=== PATIENT | female | born 2000 | race Caucasian/White ===

== ENCOUNTER 2018-02-07 18:00 | Emergency (ER) | payer OTHER, SELFPAY ==
[2018-02-07 18:03] VITALS: BP 112/89; PULSE 69; RESP 16; TEMP 36.8; O2SAT 99
--- NOTE | 2018-02-07 19:56 | PDOC.MHCN ---
Date of service: 02/07/18 Time of Service: 19:56 Mental Health Crisis Note Presenting Issue How did you arrive at the ED and why did you come: Patient arrived at the Emergency Department via [employer] after being called for a female having a panic attack and pacing back and fourth the highway. Precipitating Factors Patient denies suicidal intent. She states that she was having a conversation with her boyfriend that escalated to an extent where she felt as if she needed to exit the vehicle. She stated that her boyfriend refused to stop the vehicle but when he did she began pacing back and fourth across the lines of traffic. She cannot identify a reason as to why she engaged in such behavior but is able to that it was not her direct intent to kill herself. Disposition BEHAVIOR: No abnormal behavior to report EYE CONTACT: Direct MOOD: Nervous and anxious AFFECT: Appropriate for conversation APPETITE: Patient states that she has not been able to eat due to a sore throat from excessive vomiting due to intoxificaton SLEEP(trouble falling/staying asleep: Good Plan After speaking with the patient and the patient's boyfriend they are safe to return to their travels home to [place]. This underwriter gave the patient the crisis text line as well as the warm line for [place]. She states that she will be safe in the car on the ride home. Signature Clinician's Name/Title: Martina Peña - [facility] Emergency Clinician
--- NOTE | 2018-02-07 20:28 | PDOC.MHCN_ITS ---
Date of service: 02/07/18 Time of Service: 19:56 Mental Health Crisis Note Presenting Issue How did you arrive at the ED and why did you come: Patient arrived at the Emergency Department via [employer] after being called for a female having a panic attack and pacing back and fourth the highway. Precipitating Factors Patient denies suicidal intent. She states that she was having a conversation with her boyfriend that escalated to an extent where she felt as if she needed to exit the vehicle. She stated that her boyfriend refused to stop the vehicle but when he did she began pacing back and fourth across the lines of traffic. She cannot identify a reason as to why she engaged in such behavior but is able to that it was not her direct intent to kill herself. Disposition BEHAVIOR: No abnormal behavior to report EYE CONTACT: Direct MOOD: Nervous and anxious AFFECT: Appropriate for conversation APPETITE: Patient states that she has not been able to eat due to a sore throat from excessive vomiting due to intoxificaton SLEEP(trouble falling/staying asleep: Good Plan After speaking with the patient and the patient's boyfriend they are safe to return to their travels home to [place]. This database report writer gave the patient the crisis text line as well as the warm line for [place]. She states that she will be safe in the car on the ride home. Signature Clinician's Name/Title: aMrtina Peña - [facility] Emergency Clinician
--- NOTE | 2018-02-07 21:25 | W.ED.GENAD ---
Discharge Plan Disposition Patient Disposition: HOME Condition: Improving Discharge Details Chief Complaint: PsychEval Clinical Impression: Acute stress reaction causing mixed disturbance of emotion and conduct Primary Care Provider: KARLENE,LOCAL ED Provider: Georgi Walsh Home Meds and New Rx's Prescriptions: Continue etonogestrel-ethinyl estradiol [NuvaRing] 0.12-0.015 mg/24 hr Ring 1 ea Vaginal DIRECTED RF: 0 Discharge Instructions Instructions: Stress (ED), Suicide Prevention for Adults (ED) Additional Instructions: Feel free to return to the emergency department for any new or worsening symptoms otherwise follow-up with your psychiatrist when you get home. Stand Alone Forms: Work Release Referrals: Primary Care Provider [Outside] (As needed when you return home. ) Discharge Data Discharge Date/Time-TO BE ENTERED AT DEPARTURE: 02/07/18 21:37 Medical Decision Making Patient presenting to the emergency department via state police due to making suicidal statements after having a incident with her boyfriend. She states that they were driving back from [place] and she wanted to get out of the car and he would not pullover or ladder out of the car so she got out of the car as soon as he slowed down and then [facility] saw her walking [place]. She states that she was initially thinking about running into the [place] or into traffic but did not have any premeditation but was a reaction to the stressful situation where she had considered a possible suicidal intent. Patient now denies any homicidal suicidal thoughts and states that it was impulsive. Patient denies any medical complaints at this time beyond a mild sore throat after drinking too much alcohol 2 days ago and then vomiting. Physical exam is unremarkable and given that patient symptoms have resolved I do not feel that any labs are warranted for medical clearance and patient has no signs of acute intoxication. Patient does live approximately 2-1/2 hours away and was on her way home when this incident occurred. Patient is able to talk with mental health flask maker who was able to establish a safety plan for patient to return home with boyfriend and to seek emergent care for any new or worsening symptoms otherwise to follow-up with her psychiatrist that she normally sees. I also spoke with patient and patient is in agreement with this plan states that she is no longer suicidal and feels more calm and both her and her boyfriend are agreeable to discharge. Patient did state that she was concerned about work tomorrow so she was given a 1 day work note to allow her travel time home. After discussion of diagnosis and plan of care patient is no further needs, questions, or concerns and states clear understanding to return to the emergency department for any worsening symptoms. HPI General Date/Time Provider Initiated Documentation: 02/07/18 18:17. Limitations to Documentation: no limitations. Information obtained by: patient, police and RN notes reviewed. History of Present Illness 17 year old F presents to the emergency department with the chief complaint of Suicidal ideation, Quality is described as other (Patient denies pain or discomfort), and it has been now resolved. Patient notes no other symptoms.. Related Data Home Medications Medication Instructions Recorded Confirmed etonogestrel-ethinyl estradiol 1 ea VAGINAL DIRECTED 02/07/18 02/07/18 [NuvaRing] Allergies Allergy/AdvReac Type Severity Reaction Status Date / Time Penicillins AdvReac Intermediate hives/rash Unverified 02/07/18 18:09 General Stated Complaint: PsychEval RACHELLE: 2 Review of Systems Constitutional Denies body ache(s), Denies chills, Denies fever(s), Denies weight gain and Denies weight loss Eyes Denies change in vision ENT Denies sore throat and Denies throat swelling Cardiovascular Denies chest pain and Denies dyspnea Respiratory Denies dyspnea Gastrointestinal Denies abdominal pain Genitourinary Denies dysuria Endocrine Denies cold intolerance and Denies heat intolerance Hematologic/Lymphatic Denies easy bleeding and Denies easy bruising Allergic/Immunologic Denies throat swelling REPLACED BY [facility] Medical History Depression (Chronic) Social History Smoking/Tobacco Use Status: Never Exam Const General: cooperative Orientation: alert, awake and oriented x3 Limitations: mental status not altered HENMT Head: normal to inspection, normocephalic and atraumatic Ears: hearing grossly normal bilaterally Mouth: moist mucous membranes Eyes General: appearance normal, both eyes and all related structures Pupils: PERRL EOM: EOM intact bilaterally Neck Thyroid: thyroid normal Resp Effort & Inspection: normal respiratory effort, able to speak in complete sentences and no respiratory distress Auscultation: clear to auscultation bilaterally Cardio Rate: regular rate and not tachycardic Rhythm: regular rhythm Heart Sounds: S1 normal, S2 normal, no click, no gallops, no murmurs and no rubs Neuro General: alert, awake, oriented x3, gait normal, moves all extremities and no focal motor deficits Cognition: normal cognition Speech: speech normal Psych Appearance: grossly normal and well kempt Mental Status: mental status grossly normal Speech and Movement: speech and movement normal, speech clear, speech not pressured and not restless Affect: normal affect Attitude: cooperative Thought Process: normal, no flight of ideas, logical and not impoverished Thought Content: normal, no homicidality and suicidality (Which has now resolved) Insight: insight good Course Vital Signs Temperature 36.8 C 02/07/18 18:03 Pulse 69 02/07/18 18:03 Respiratory Rate 16 02/07/18 18:03 Blood Pressure 112/89 02/07/18 18:03 Pulse Oximetry 99 02/07/18 18:03 Temperature 36.8 C 02/07/18 18:03 Temperature Source Skin 02/07/18 18:03 Pulse 69 02/07/18 18:03 Respiratory Rate 16 02/07/18 18:03 Respiratory Effort 02/07/18 18:10 Blood Pressure 112/89 02/07/18 18:03 Blood Pressure Position Sitting 02/07/18 18:03 Pulse Oximetry 99 02/07/18 18:03 Oxygen Delivery Method Room Air 02/07/18 18:03 Oxygen Flow Rate 0 02/07/18 18:03
--- NOTE | 2018-02-07 21:29 | ED.GENADUL_ITS ---
Discharge Plan Disposition Patient Disposition: HOME Condition: Improving Discharge Details Chief Complaint: PsychEval Clinical Impression: Acute stress reaction causing mixed disturbance of emotion and conduct Primary Care Provider: KARLENE,LOCAL ED Provider: Georgi Walsh Home Meds and New Rx's Prescriptions: Continue etonogestrel-ethinyl estradiol [NuvaRing] 0.12-0.015 mg/24 hr Ring 1 ea Vaginal DIRECTED RF: 0 Discharge Instructions Instructions: Stress (ED), Suicide Prevention for Adults (ED) Additional Instructions: Feel free to return to the emergency department for any new or worsening symptoms otherwise follow-up with your psychiatrist when you get home. Stand Alone Forms: Work Release Referrals: Primary Care Provider [Outside] (As needed when you return home. ) Discharge Data Discharge Date/Time-TO BE ENTERED AT DEPARTURE: 02/07/18 21:37 Medical Decision Making Patient presenting to the emergency department via state police due to making suicidal statements after having a incident with her boyfriend. She states that they were driving back from [place] and she wanted to get out of the car and he would not pullover or ladder out of the car so she got out of the car as soon as he slowed down and then [facility] saw her walking [place]. She states that she was initially thinking about running [place] the [place] or into traffic but did not have any premeditation but was a reaction to the stressful situation where she had considered a possible suicidal intent. Patient now denies any homicidal suicidal thoughts and states that it was impulsive. Patient denies any medical complaints at this time beyond a mild sore throat after drinking too much alcohol 2 days ago and then vomiting. Physical exam is unremarkable and given that patient symptoms have resolved I do not feel that any labs are warranted for medical clearance and patient has no signs of acute intoxication. Patient does live approximately 2-1/2 hours away and was on her way home when this incident occurred. Patient is able to talk with mental health piano sounding board matcher who was able to establish a safety plan for patient to return home with boyfriend and to seek emergent care for any new or worsening symptoms otherwise to follow-up with her psychiatrist that she normally sees. I also spoke with patient and patient is in agreement with this plan states that she is no longer suicidal and feels more calm and both her and her boyfriend are agreeable to discharge. Patient did state that she was concerned about work tomorrow so she was given a 1 day work note to allow her travel time home. After discussion of diagnosis and plan of care patient is no further needs, questions, or concerns and states clear understanding to return to the emergency department for any worsening symptoms. HPI General Date/Time Provider Initiated Documentation: 02/07/18 18:17 . Limitations to Documentation: no limitations . Information obtained by: patient, police and RN notes reviewed . History of Present Illness 17 year old F presents to the emergency department with the chief complaint of Suicidal ideation, Quality is described as other (Patient denies pain or discomfort), and it has been now resolved. Patient notes no other symptoms.. Related Data Home Medications Medication Instructions Recorded Confirmed etonogestrel-ethinyl estradiol 1 ea VAGINAL DIRECTED 02/07/18 02/07/18 [NuvaRing] Allergies Allergy/AdvReac Type Severity Reaction Status Date / Time Penicillins AdvReac Intermediate hives/rash Unverified 02/07/18 18:09 General Stated Complaint: PsychEval RACHELLE: 2 Review of Systems Constitutional Denies body ache(s), Denies chills, Denies fever(s), Denies weight gain and Denies weight loss Eyes Denies change in vision ENT Denies sore throat and Denies throat swelling Cardiovascular Denies chest pain and Denies dyspnea Respiratory Denies dyspnea Gastrointestinal Denies abdominal pain Genitourinary Denies dysuria Endocrine Denies cold intolerance and Denies heat intolerance Hematologic/Lymphatic Denies easy bleeding and Denies easy bruising Allergic/Immunologic Denies throat swelling [facility] Medical History Depression (Chronic) Social History Smoking/Tobacco Use Status: Never Exam Const General: cooperative Orientation: alert, awake and oriented x3 Limitations: mental status not altered HENMT Head: normal to inspection, normocephalic and atraumatic Ears: hearing grossly normal bilaterally Mouth: moist mucous membranes Eyes General: appearance normal, both eyes and all related structures Pupils: PERRL EOM: EOM intact bilaterally Neck Thyroid: thyroid normal Resp Effort & Inspection: normal respiratory effort, able to speak in complete sentences and no respiratory distress Auscultation: clear to auscultation bilaterally Cardio Rate: regular rate and not tachycardic Rhythm: regular rhythm Heart Sounds: S1 normal, S2 normal, no click, no gallops, no murmurs and no rubs Neuro General: alert, awake, oriented x3, gait normal, moves all extremities and no focal motor deficits Cognition: normal cognition Speech: speech normal Psych Appearance: grossly normal and well kempt Mental Status: mental status grossly normal Speech and Movement: speech and movement normal, speech clear, speech not pressured and not restless Affect: normal affect Attitude: cooperative Thought Process: normal, no flight of ideas, logical and not impoverished Thought Content: normal, no homicidality and suicidality (Which has now resolved ) Insight: insight good Course Vital Signs Temperature 36.8 C 02/07/18 18:03 Pulse 69 02/07/18 18:03 Respiratory Rate 16 02/07/18 18:03 Blood Pressure 112/89 02/07/18 18:03 Pulse Oximetry 99 02/07/18 18:03 Temperature 36.8 C 02/07/18 18:03 Temperature Source Skin 02/07/18 18:03 Pulse 69 02/07/18 18:03 Respiratory Rate 16 02/07/18 18:03 Respiratory Effort 02/07/18 18:10 Blood Pressure 112/89 02/07/18 18:03 Blood Pressure Position Sitting 02/07/18 18:03 Pulse Oximetry 99 02/07/18 18:03 Oxygen Delivery Method Room Air 02/07/18 18:03 Oxygen Flow Rate 0 02/07/18 18:03
[2018-02-07 21:32] VITALS: BP 112/89; PULSE 69; RESP 16; TEMP 36.8; O2SAT 99
== END 2018-02-07 21:37 | disposition home or self-care (01) ==
PROVIDERS: Emergency Provider Nurse Practitioner Family
DX: F43.0 Acute stress reaction (principal); Z63.9 Problem related to primary support group, unspecified
CPT/HCPCS: 99285; 99281